=== PATIENT | female | born 2000 | race Caucasian/White ===

== ENCOUNTER 2022-03-11 09:38 | Outpatient (CLI) | payer MEDICAID, OTHER, SELFPAY ==
[2022-03-11 17:57] LABS: Chlamydia DNA Amplified* NOT DETECTED (No Detected); GC DNA Amplified* NOT DETECTED (No Detected)
== END 2022-03-11 09:39 | disposition home or self-care (01) ==
PROVIDERS: PCP Family Medicine; Visit Provider Physician Assistant
DX: Z11.3 Encounter for screening for infections with a predominantly sexual mode of transmission (principal); Z12.4 Encounter for screening for malignant neoplasm of cervix
CPT/HCPCS: 87491; 87591; 88174

== ENCOUNTER 2022-07-13 15:11 | Outpatient (CLI) | payer OTHER, SELFPAY | END 2022-07-13 15:12 | disposition home or self-care (01) | LOC: NFLDREF 15:12 | PROVIDERS: PCP Family Medicine; Visit Provider Physician Assistant | DX: R35.0 Frequency of micturition (principal); R32 Unspecified urinary incontinence; N89.8 Other specified noninflammatory disorders of vagina | CPT/HCPCS: 87086; 87210 ==

== ENCOUNTER 2022-07-28 09:21 | Outpatient (CLI) | payer OTHER, SELFPAY ==
--- NOTE | 2022-07-28 09:45 | CRLHL7_ITS ---
For Patients: As a result of the Century Cures Act, medical imaging exams and procedure reports are released immediately into your electronic medical record. You may view this report before your referring provider. If you have questions, please contact your health care provider. INDICATION: Urinary INCONTINENCE WITH INTERCOURSE COMPARISON: none TECHNIQUE: 2D johnston scale and color Doppler images were acquired of the pelvis using a transabdominal and transvaginal approach. FINDINGS: Sonographic images demonstrate a normal size and smooth outer contour of the uterus. Uterus measures 7.7 cm in length by 3.2 cm in AP diameter by 4.2 cm in transverse dimension. The myometrium has a normal uniform echotexture. The endometrial lining appears normal and measures 9 mm in composite thickness. IUD is in good position within the endometrial canal. The right ovary measures 3.2 x 1.8 x 1.8 cm in size and the left ovary measures 3.5 x 1.6 x 2.6 cm. The ovaries demonstrate normal arterial and venous blood flow on color Doppler analysis. There are no suspicious fluid collections within the cul-de-sac. IMPRESSION: Normal pelvic ultrasound. Dictated by Antonio Bloom MD @ 07/28/2022 10:57:20 AM (Electronically Signed)
== END 2022-07-28 09:22 | disposition home or self-care (01) ==
LOC: US 09:22
PROVIDERS: PCP Family Medicine; Visit Provider Physician Assistant
DX: R32 Unspecified urinary incontinence (principal)
CPT/HCPCS: 76830; 76856